=== PATIENT | male | born 1945 | race Caucasian/White ===

== ENCOUNTER → 2017-08-06 | Outpatient (CLI) | payer MEDICARE, OTHER ==
[~2017-08-06] MED LIST: HYDR-3535 PO; LEVO50TA4 PO; MULT-65 PO; VITA10004 PO; [UNRECOGNIZED DRUG - OTHER]; [UNRECOGNIZED DRUG - OTHER]
[2017-08-06 12:20] LABS: APTT (PATIENT) 25.7 SEC (24.3-30.1); INTERNATIONAL NORMALIZED RATIO 1.1 RATIO; PROTHROMBIN TIME - PATIENT 11.9 SEC (9.8-11.6)
[2017-08-06 12:24] LABS: BLOOD, URINE SMALL (NEG); GLUCOSE,URINE NEG (NEG); KETONE, URINE NEG (NEG); NITRITE,URINE NEG (NEG); PH, URINE 5.5 (5.0-8.5); SQUAMOUS EPITHELIAL CELL URINE <1 /hpf (0-5); URINE COLOR YELLOW (YELLW/STRAW)
[2017-08-06 12:27] LABS: AUTOMATED NEUTROPHIL # 2.9 TH/MM3 (1.8-7.7); BASOPHIL # 0.1 TH/MM3 (0-0.2); BASOPHIL % 1.2 % (0.0-2.0); EOSINOPHIL # 0.3 TH/MM3 (0-0.4); HEMATOCRIT 41.3 % (39.0-51.0); HEMO FLAGS DIFF FINAL; LYMPH % 26.2 % (9.0-44.0); LYMPHOCYTE # 1.4 TH/MM3 (1.0-4.8); MEAN CELL VOLUME 92.7 FL (80.0-100.0); MEAN CORPUSCULAR HGB CONC 34.6 % (32.0-36.0); MONO % 12.1 % (0.0-8.0); NEUT % 54.5 % (16.0-70.0); PLATELET COUNT 127 TH/MM3 (150-450); RED BLOOD COUNT 4.46 MIL/MM3 (4.50-5.90); RED CELL DISTRIBUTION WIDTH 12.6 % (11.6-17.2); WHITE BLOOD COUNT 5.3 TH/MM3 (4.0-11.0)
[2017-08-06 12:35] LABS: COMMENT (UR) CULT NOT INDICATED; CULTURE IF INDICATED CULT NOT INDICATED
[2017-08-06 12:35] LABS: ANION GAP 5 MEQ/L (5-15); AST (GOT) 18 U/L (15-37); BICARBONATE 31.2 MEQ/L (21.0-32.0); BLOOD UREA NITROGEN 11 MG/DL (7-18); CHLORIDE 104 MEQ/L (98-107); GLOMERULAR FILTRATION RATE 81 ML/MIN (>89); GLUCOSE,FASTING 91 MG/DL (74-99); SODIUM (NA) 140 MEQ/L (136-145)
--- NOTE | 2017-08-06 12:35 | RADRPT ---
EXAM DATE/TIME: 08/06/2017 12:21 [facility] COMPARISON: No previous studies available for comparison. INDICATIONS : Evaluate for pneumonia, pneumothorax, or communicable disease. Pre op for lumbar surgery. MEDICAL HISTORY : Carcinoma, lung. SURGICAL HISTORY : None. ENCOUNTER: Initial ACUITY: 1 day PAIN SCORE: 0/10 LOCATION: Bilateral chest FINDINGS: PA and lateral views of the chest demonstrate the lungs to be symmetrically aerated without evidence of mass, infiltrate or effusion. The cardiomediastinal contours are unremarkable. Osseous structure s are intact. CONCLUSION: No acute disease. Sloan Boss MD FACR on August 06, 2017 at 12:33 Board Certified Radiologist. This report was verified electronically.
[2017-08-06 12:36] LABS: ALT (GPT) 22 U/L (12-78)
[2017-08-06 12:38] LABS: ALKALINE PHOSPHATASE 79 U/L (45-117); TOTAL BILIRUBIN ADULT 0.3 MG/DL (0.2-1.0)
--- NOTE | 2017-08-06 23:50 | EKG ---
Date Performed: 08/06/2017 Time Performed: 11:41:19 PTAGE: 71 years EKG: Sinus rhythm NORMAL ECG NO PREVIOUS TRACING DOCTOR: Omari Parra Interpretating Date/Time 08/06/2017 23:48:56
== END ==
LOC: CPRE 11:16
PROVIDERS: ATTEND Neurological Surgery
DX: Z01.810 Encounter for preprocedural cardiovascular examination (principal); Z01.811 Encounter for preprocedural respiratory examination; Z01.812 Encounter for preprocedural laboratory examination; M48.02 Spinal stenosis, cervical region; M51.36 Other intervertebral disc degeneration, lumbar region
CPT/HCPCS: 36415; 71020; 80053; 81001; 85025; 85610; 85730; 93005

== ENCOUNTER → 2017-08-11 | Day surgery (SDC) | payer MEDICARE, OTHER ==
--- NOTE | 2017-08-07 17:29 | MH ---
cc: MARI LOVELACE M.D., TIMOTHY J. M.D. WOODARD, GERALD R. D.O. DATE OF ADMISSION: 08/12/2017 ADMITTING DIAGNOSIS: Lumbar spinal stenosis. HISTORY OF PRESENT ILLNESS This is a 71-year-old male who presented to us for evaluation of paresthesias in his lower extremities intermittently with sneezing. He states that this has happened to three times a month and June and July 2017. The sensation radiates down the posterior aspect of his legs bilaterally. He has also noticed spots in the plantar aspect of his feet bilaterally, better now. The left plantar aspect of his foot has been for a year and the right side has been for about six months. He denies any lower back pain. He can get pain radiating into the left posterior leg with strenuous activity. He states that at times his legs buckle although this is rare. He denies any bowel or bladder incontinence. PAST MEDICAL HISTORY: 1. Significant for umbilical hernia with mesh in 2011 2. Removal of cyst 2016 3. Removal of fatty mass from his back 2004. 4. Right eye retinal surgery in November and January 2006 5. Cyst removal in 1974. 6. Lung cancer in 2009. CURRENT MEDICATIONS Levothyroxine 50 mg p.o. daily. ALLERGIES TO MEDICATIONS AMOXICILLIN ATORVASTATIN DOXYCYCLINE MINOCYCLINE TIGECYCLINE ETHYLENE OXIDE ETHYLENEDIAMINE FAMILY HISTORY His mother is alive 89 year's old, Alzheimer's disease. His father is at 43, pneumonia. He has two sisters that are alive one is 56, the other is 71. He has two brothers that are alive one is 55, the other is 58, all are alive and well. SOCIAL HISTORY He is a retired electrician technician. He is . He has three children. He quit smoking in 2009. He drinks alcohol rarely approximately five times a year. REVIEW OF SYSTEMS CONSTITUTIONAL: Denies any fever or chills. HEAD, EYES, EARS, NOSE, AND THROAT: No pharyngitis, exudates or bloody drainage from his nose. CARDIOVASCULAR SYSTEM: Denies any chest pain or palpitations. RESPIRATORY: No cough or shortness of breath. GENITOURINARY: No dysuria or hematuria. MUSCULOSKELETAL: No low back pain or neck pain. SKIN: No rashes or pruritus. NEUROLOGIC: No difficulty with speech or memory, he gets numbness in his lower extremities with sneezing. GASTROINTESTINAL: No nausea, vomiting, abdominal pain. PSYCHIATRIC: No anxiety or depression symptoms. ENDOCRINE: No polyuria, polydipsia. HEMATOLOGIC: Positive for bruising but no bleeding tendencies. PHYSICAL EXAMINATION HEAD, EYES, EARS, NOSE, AND THROAT: Normocephalic, atraumatic. NECK: Supple. No carotid bruits heard on auscultation. LUNGS: Clear to auscultation bilaterally. HEART: Regular rate and rhythm, normal S1, S2. ABDOMEN: The abdomen is soft, nontender, positive bowel sounds. SKIN: The skin reveals no cyanosis or erythema. MUSCULOSKELETAL: He and relates without any assistive device. NEUROLOGIC: He is awake, alert, oriented. Cranial nerves II-XII are grossly intact. Speech is fluent. Comprehension is good. He is hard of hearing and wears hearing aids bilaterally. Achilles reflexes are absent bilaterally. Patellar reflexes are 2+ bilaterally. IMPRESSION 71-year-old male who complains of pain and lower extremities, left more than right along with paresthesias and numbness into his feet bilaterally. Symptoms worsen with sneezing or coughing and is very concerned about symptoms progress along with permanent nerve deficits. He has severe L4 / L5 spinal stenosis from facet ligamentum flavum hypertrophy along with degenerative disk disease and near complete disk height collapse. He also has moderate L2-L3 and mild to moderate L3-L4 spinal stenosis with severe multilevel degenerative disk disease and involving L1-L2, L2-L3, L3-L4, and L4-L5 Levels in particular with disk height collapse and endplate changes along with facet arthropathy. Data reviewed MRI of the lumbar spine from June 26, 2017 which shows severe L4, L6 and L5 spinal stenosis from facet ligamentum flavum hypertrophy along with degenerative disk disease in near complete disk height collapse. He also has moderate L2-L3 and mild to moderate L3-L4 spinal stenosis with severe multilevel degenerative disk disease involving the L1-L2, L2-L3, L3-L4, L4-L5 levels in particular with disk height collapse and N-plate changes along with facet arthropathy. ASSESSMENT AND PLAN: We have discussed treatment options with the patient which include continued conservative measures with physical therapy and pain management versus surgical intervention. Surgery will involve an L2-L4 decompressive laminectomy, given the severity of stenosis and neurogenic claudication symptoms and risk for cauda equina syndrome. The patient and the are requesting that we proceed. He was therefore scheduled accordingly. Mari Lovelace MD DICTATED BY: TRACEE Acosta/carlos /4:47 PM /5:03 PM
[~2017-08-11] VITALS: Ht 175.3 cm; Wt 75.5 kg
[~2017-08-11] MED LIST changes: +ACETAMINOPHEN/HYDROcodone 325 MG/10 MG TAB PO PRN; +BUPIVACAINE/EPINEPHRINE 0.5% 50 ML VIAL ONE; +CHLORHEXIDINE GLUCONATE 2 % 1 PACK (2 CLOTHS) TOPICAL PRN; +DO NOT ADM ANY ANTICOAGULANT DRUGS PRN; +GELFOAM SIZE 100 ONE; +GLYCOPYRROLATE 1 MG/5 ML SYRINGE IV PUSH ONE; +INSULIN HUMAN REGULAR 1,000 UNITS/10 ML VIAL SQ PRN; +LACTATED RINGER'S 1000 ML IV PRN; +LIDOCAINE HCL 1% PF 5 ML AMPULE OTHER ONE; +METOPROLOL TARTRATE 25 MG TAB PO PRN; +MORPHINE SULFATE 4 MG/ML INJ IV PUSH PRN; +NEOSTIGMINE 3 MG/3 ML SYR IV ONE; +NORMOSOL R INJ 1,000 ML IV ONE; +ONDANSETRON HCL 4 MG/2 ML VIAL IV PUSH ONE; +ONDANSETRON HCL 4 MG/2 ML VIAL IV PUSH PRN; +PHENYLEPH/NS 1000 MCG/10 ML SYR IV ONE; +POVIDONE IODINE 5% (ANTISEPSIS KIT) 4 APPLICATIONS EACH NARE PRN; +PROPOFOL 200 MG/20 ML AMP IV ONE; +ROCURONIUM INJ 50 MG/5 ML SYRINGE IV PUSH ONE; +SODIUM CHLOR 0.9% 1000 ML INJ 1,000 ML IV SCH; +SODIUM CHLORID 0.9% 500 ML IV PRN; +THROMBIN (TOPICAL) 5,000 UNIT VIAL ONE; +VANCOMYCIN 1000 MG/NS 250 ML IV SCH; +VANCOMYCIN HCL 1000 MG VIAL ONE; -[UNRECOGNIZED DRUG - OTHER]; -[UNRECOGNIZED DRUG - OTHER]; +ePHEDrine/NS 25 MG/5 ML SYR IV ONE; +methylPREDNISolone ACETATE 40 MG/ML VIAL ONE
--- NOTE | 2017-08-11 12:26 | RADRPT ---
EXAM DATE/TIME: 08/11/2017 08:32 [facility] COMPARISON: No previous studies available for comparison. INDICATIONS : L2-L3, L3-L4 lumbar laminectomies. Level localization. MEDICAL HISTORY : None. SURGICAL HISTORY : Fusion, cervical. ENCOUNTER: Initial ACUITY: 1 day PAIN SCORE: Non-responsive. LOCATION: Lumbar spine. FINDINGS: 2 crosstable spot intraoperative fluoroscopic views of the lumbosacral spine demonstrate localization devices projecting posterior to the L5 vertebral body on the first image at L5, and L2-3 [address]. CONCLUSION: Localization as above. Kristian Carter MD on August 11, 2017 at 12:24 Board Certified Radiologist. This report was verified electronically.
--- NOTE | 2017-08-11 12:29 | PD.OP ---
cc: Dae Shine DO Operative Report Date of Surgery: Aug 11, 2017 Preoperative Diagnosis: Low back pain with severe neurogenic claudication; severe L2-3, L3-4 and L4-5 spinal stenosis from facet and ligamentum flavum hypertrophy along with degenerative disc disease Postoperative Diagnosis: Same Procedure: Bilateral L2, L3, L4 and L5 decompressive laminotomies with medial facetectomies ; microsurgical technique Anesthesia: Gen. endotracheal by Kali rAaiza Surgeon: Luis E Caballero M.D. Vacuum Cleaner Repairer(s): Dorothy Morris Operation and Findings: Following administration of general endotracheal anesthesia, patient received vancomycin 1 g intravenously. Sequential compression devices were placed for DVT prophylaxis. He was then turned in prone position on Michel frame and the Chad table and all pressure points adequately padded. The lumbar region was then shaved and prepped with a Betadine and ChloraPrep. Sterile draping undertaken with Ioban. Midline incision overlying the L2-L4 levels was then made after infiltrating the skin with 0.5% Marcaine with epinephrine solution. The skin incision was made extending down through the fascia and then using the subperiosteal plane on the left side the muscular attachments to the spinous process and lamina were detached. Intraoperative fluoroscopy was used for level confirmation and further dissection undertaken using microtechnique with microscope magnification. The inferior portion of the left L2, L3, L4 and superior portion of the L5 lamina was then drilled out and the underlying ligamentum flavum also removed. There was severe facet arthropathy noted and the medial portion of facets was also resected and the lateral recess decompressed. With gentle thecal sac retraction and the hypertrophied ligamentum flavum and medial portion of facets were also resected on the right side from L2 to L5 levels in the spinal canal decompressed circumferentially while maintaining the intraspinous and right facet capsule/ligaments. Epidural venous stasis which he with the bipolar cautery along with Gelfoam and thrombin and bone wax used at the laminotomy edges for hemostasis. The area was then copiously irrigated with vancomycin solution. Depo-Medrol 40 mg was also injected in the epidural space. The retractors removed and the muscle fascia proximal using 2-0 Vicryl interrupted stitches. 3-0 Vicryl subcuticular stitches were also placed in an interrupted fashion and planned skin closure was with Mastisol and Steri-Strips. A sterile dressing was then applied and the patient then turned in the supine position and extubated and taken to recovery room in stable condition. There were no intraoperative complications and all sponge and needle count was correct at the end of the procedure. Estimated blood loss about 150 cc. Luis E Caballero MD Aug 11, 2017 12:29
[2017-08-11 13:15] VITALS: TEMP 98.1
[2017-08-11 14:20] VITALS: BP 116/73; PULSE 83; RESP 18; O2SAT 99
== END | disposition home or self-care (01) ==
LOC: HSDC 06:03
PROVIDERS: ATTEND Neurological Surgery
DX: M48.06 Spinal stenosis, lumbar region (principal); M51.36 Other intervertebral disc degeneration, lumbar region; Z85.118 Personal history of other malignant neoplasm of bronchus and lung
CPT/HCPCS: 00630; 63047; 63048; 72020; 76000; J1030; J2370; J2405; J2710; J3010; J3370; J7050; J7120